=== PATIENT | male | born 1955 | race Caucasian/White ===

== ENCOUNTER 2017-10-18 08:18 | Day surgery (SDC) | payer BC ==
[~2017-10-18] VITALS: Ht 185.4 cm; Wt 87.2 kg
[2017-10-18] VITALS (538 sets, daily range): BP systolic 117–170; BP diastolic 68–104; PULSE 18–62; TEMP 98–98.8; O2SAT 84–100
[2017-10-18 08:39] LABS: MEAN CELL VOLUME 83 fl (80.0-100.0); MEAN CORPUSCULAR HGB CONC 31 g/dl (33.0-37.0); PLATELET COUNT 290 K/mm3 (130-400); RED BLOOD COUNT 4.16 M/mm3 (4.20-5.60); REDCELL DISTRIBUTION WIDTH-CV 14.3 % (11.5-14.5)
[2017-10-18 08:40] LABS: HEMATOCRIT 34.7 % (42.0-52.0); HEMOGLOBIN 10.9 g/dl (13.5-18.0); MEAN CORPUSCULAR HEMOGLOBIN 26 pg (27.0-31.0)
[2017-10-18 08:44] LABS: PROTHROMBIN TIME 11.9 SECONDS (9.7-12.8)
[2017-10-18 08:55] LABS: CALCIUM 9.1 mg/dL (8.4-10.2); CREATININE, serum 0.98 mg/dL (0.66-1.25); POTASSIUM 4.7 mmol/L (3.4-5.0)
[2017-10-18] MEDS ORDERED: FLOMAX 0.40.4 MG/CAP PO (08:55)
[2017-10-18] MEDS ORDERED: PROZAC 20MG20 MG PO (08:56)
[2017-10-18] MEDS ORDERED: PLAVIX 75MG TAB75 MG PO (08:56)
[2017-10-18] MEDS ORDERED: LIPITOR 40MG TA40 MG PO (08:57)
[2017-10-18] MEDS ORDERED: WELLBUTRIN 100100 MG PO (08:57)
[2017-10-18] MEDS ORDERED: TENORMIN 5050 MG/TAB PO (08:57)
[2017-10-18] MEDS ORDERED: PROTONIX 40MG T40 MG PO (08:58)
[2017-10-19] VITALS (389 sets, daily range): BP systolic 131–169; BP diastolic 59–87; PULSE 54–68; TEMP 98–98.7; O2SAT 89–100
[2017-10-19 04:34] LABS: BASO # 0.1 (0.0-0.2); BASO % 0.8 % (0.0-2.0); EOS # 0.3 (0.0-0.7); GRAN # 4.8 (1.4-6.5); GRAN % 64.6 % (42.2-75.2); LYMPH # 1.5 (1.2-3.4); LYMPH % 20.2 % (20.0-51.0); MEAN CELL VOLUME 83 fl (80.0-100.0); MEAN CORPUSCULAR HGB CONC 32 g/dl (33.0-37.0); MEAN PLATELET VOLUME 9.7 fl (7.4-10.4); MONO # 0.8 (0.1-0.6); MONO % 10.1 % (1.7-9.3); PLATELET COUNT 252 K/mm3 (130-400); RED BLOOD COUNT 4.03 M/mm3 (4.20-5.60); REDCELL DISTRIBUTION WIDTH-CV 14.3 % (11.5-14.5)
[2017-10-19 04:35] LABS: HEMATOCRIT 33.6 % (42.0-52.0); HEMOGLOBIN 10.6 g/dl (13.5-18.0); MEAN CORPUSCULAR HEMOGLOBIN 26 pg (27.0-31.0)
[2017-10-19 04:46] LABS: CALCIUM 8.9 mg/dL (8.4-10.2); CREATININE, serum 0.92 mg/dL (0.66-1.25)
[2017-10-19] MEDS ORDERED: NICODERM C14 MG/PATC TD (09:07)
[2017-10-19] MEDS ORDERED: NITROSTAT0.4 MG/TAB SL (09:09)
[2017-10-19] MEDS ORDERED: LIPITOR 40MG TA40 MG PO (09:10)
[2017-10-19] MEDS ORDERED: COZAAR 50MG50 MG/TAB PO (09:10)
[2017-10-19] MEDS ORDERED: ASPIRIN E.C. 8181 MG PO (09:10)
== END 2017-10-19 12:06 | disposition home or self-care (01) ==
LOC: COL.CAR 08:18 → ICU 13:55 → COL.CAR 10-19 12:06
PROVIDERS: Internal Medicine Cardiovascular Disease
DX: I25.10 Atherosclerotic heart disease of native coronary artery without angina pectoris (principal); R94.39 Abnormal result of other cardiovascular function study; I10 Essential (primary) hypertension; E78.5 Hyperlipidemia, unspecified; K21.9 Gastro-esophageal reflux disease without esophagitis; F17.200 Nicotine dependence, unspecified, uncomplicated; Z95.1 Presence of aortocoronary bypass graft; Z88.8 Allergy status to other drugs, medicaments and biological substances; Z82.49 Family history of ischemic heart disease and other diseases of the circulatory system
CPT/HCPCS: OP; C1725; C1760; C1769; C1874; C1887; C1894; C9600; J0583; J2250; J3010; Q9967

== ENCOUNTER → 2018-02-23 | Outpatient (CLI) | payer BC ==
[~2018-02-23] MED LIST: ASPIRIN E.C. 8181 MG PO; COZAAR 50MG50 MG/TAB PO; FLOMAX 0.40.4 MG/CAP PO; LIPITOR 40MG TA40 MG PO; NICODERM C14 MG/PATC TD; NITROSTAT0.4 MG/TAB SL; PLAVIX 75MG TAB75 MG PO; PROTONIX 40MG T40 MG PO; PROZAC 20MG20 MG PO; TENORMIN 5050 MG/TAB PO; WELLBUTRIN 100100 MG PO
== END ==
LOC: COL.RAD 08:47
DX: D14.0 Benign neoplasm of middle ear, nasal cavity and accessory sinuses (principal); M85.88 Other specified disorders of bone density and structure, other site; K08.109 Complete loss of teeth, unspecified cause, unspecified class

== ENCOUNTER → 2018-03-02 | Outpatient (CLI) | payer BC | LOC: COL.VAS 08:24 | DX: Z01.810 Encounter for preprocedural cardiovascular examination (principal); I08.1 Rheumatic disorders of both mitral and tricuspid valves; I21.9 Acute myocardial infarction, unspecified; I25.5 Ischemic cardiomyopathy; I25.10 Atherosclerotic heart disease of native coronary artery without angina pectoris ==

== ENCOUNTER 2019-01-18 09:30 | Day surgery (SDC) | payer BC ==
[~2019-01-18] VITALS: Ht 180.3 cm; Wt 79.0 kg
[~2019-01-18 09:30] MED LIST changes: -WELLBUTRIN 100100 MG PO; +WELLBUTRIN XL300 M1 PO
[2019-01-18] MEDS ORDERED: LIPITOR 80MG80 MG PO (10:02)
[2019-01-18 10:46] VITALS: BP 165/92; PULSE 58; TEMP 97.9
[2019-01-18 12:00] VITALS: BP 130/74; PULSE 60; TEMP 98.6
--- NOTE | 2019-01-18 12:00 | NUR ---
Patient brought back to [facility]. Alert and oriented, ambulated to chair without difficulty. Vital signs stable. Denies any nausea or pain. States he would like black coffee. Marjorie at bedside. Call jordan within reach, will continue to monitor.
[2019-01-18 12:15] VITALS: BP 129/76; PULSE 51
[2019-01-18 12:30] VITALS: BP 123/85; PULSE 52
--- NOTE | 2019-01-18 12:30 | NUR ---
Patient states that he is feeling well and ready to go home. Tolerating drink well. Vital signs stable, will continue to monitor.
--- NOTE | 2019-01-18 12:45 | NUR ---
Discharge instructions reviewed with patient and . All questions answered. IV removed per orders. Patient to get dressed at this time.
--- NOTE | 2019-01-18 13:00 | NUR ---
Patient brought down to lobby via wheel chair. To be driven home by Marjorie.
== END 2019-01-18 13:00 | disposition home or self-care (01) ==
LOC: SDCO 09:30
DX: D50.9 Iron deficiency anemia, unspecified (principal); R09.89 Other specified symptoms and signs involving the circulatory and respiratory systems; R12 Heartburn; I25.10 Atherosclerotic heart disease of native coronary artery without angina pectoris; Z95.5 Presence of coronary angioplasty implant and graft; R63.4 Abnormal weight loss
CPT/HCPCS: J2250; J3010; J7030

== ENCOUNTER 2019-09-23 06:56 | Outpatient (CLI) | payer MEDICARE ==
[2019-09-23] VITALS (8 sets, daily range): BP systolic 130–157; BP diastolic 68–95; PULSE 55–68; TEMP 98.2
[~2019-09-23] VITALS: Ht 180.3 cm; Wt 78.7 kg
[~2019-09-23 06:56] MED LIST changes: +LIPITOR 80MG80 MG PO
[2019-09-23] MEDS ORDERED: NITROSTAT0.4 MG/TAB SL (07:24)
[2019-09-23] MEDS ORDERED: ASPIRIN E.C. 8181 MG PO (07:24)
[2019-09-23 07:30] LABS: CALCIUM 9.2 mg/dL (8.4-10.2); CREATININE, serum 0.83 (0.66-1.25); POTASSIUM 4.1 mmol/L (3.4-5.0)
[2019-09-23 07:32] LABS: PROTHROMBIN TIME 11.5 SECONDS (9.7-12.8)
[2019-09-23 07:36] LABS: HEMATOCRIT 46.5 % (42.0-52.0); MEAN CELL VOLUME 93 fl (80.0-100.0); MEAN CORPUSCULAR HEMOGLOBIN 30 pg (27.0-31.0); MEAN CORPUSCULAR HGB CONC 32 g/dl (33.0-37.0); MEAN PLATELET VOLUME 9.8 fl (7.4-10.4); PLATELET COUNT 275 K/mm3 (130-400); RED BLOOD COUNT 4.98 M/mm3 (4.20-5.60); REDCELL DISTRIBUTION WIDTH-CV 13.1 % (11.5-14.5)
--- NOTE | 2019-09-23 09:17 | NUR ---
YIMI complete. [place] RN in with pt. Spouse Marjorie called to pick pt up after 1030 . VSS
--- NOTE | 2019-09-23 12:02 | NUR ---
INT discontinued intact. Discharge instructions given.
--- NOTE | 2019-09-23 12:55 | NUR ---
Ambulated around unit with steady gait.
--- NOTE | 2019-09-23 12:56 | NUR ---
Ambulated to private car with steady gait
== END 2019-09-23 12:45 | disposition home or self-care (01) ==
LOC: COL.RAD 06:56
PROVIDERS: Internal Medicine Cardiovascular Disease
DX: Q21.1 Atrial septal defect (principal)
CPT/HCPCS: J2704

== ENCOUNTER 2020-04-09 12:45 | Outpatient (RCR) | payer BC | END 2020-04-22 | disposition home or self-care (01) | LOC: WSST | DX: R41.3 Other amnesia (principal) ==